=== PATIENT | female | born 1970 | race Caucasian/White ===

== ENCOUNTER 2016-05-06 13:07 | Emergency (ER) | payer MEDICAID, OTHER ==
[~2016-05-06] VITALS: Ht 154.9 cm; Wt 65.0 kg
[2016-05-06 13:18] VITALS: Ht 154.9 cm; Wt 65.0 kg
[2016-05-06 14:47] LABS: POTASSIUM 3.6 mmol/L (3.5-5.1)
[2016-05-06 14:50] LABS: CALCIUM 8.4 mg/dl (8.4-10.2); CREATININE 0.54 mg/dl (0.44-1.00)
[2016-05-06] MEDS ORDERED: IOHEXOL 300MG/ML 150 ML BTL ONE (16:42)
[2016-05-06] MEDS ORDERED: SOD CHLORIDE 0.9% 100 ML ONE (16:42)
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
[2016-05-06] MEDS ORDERED: HYDR-906 PO (17:43)
[2016-05-06] MEDS ORDERED: METH-70 PO (17:43)
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
[2016-05-06 17:59] VITALS: BP 128/62; PULSE 77; RESP 18
== END 2016-05-06 18:00 | disposition home or self-care (01) ==
LOC: E/R 13:07
DX: S39.81XA Other specified injuries of abdomen, initial encounter (principal); N83.202 Unspecified ovarian cyst, left side; V03.10XA Pedestrian on foot injured in collision with car, pick-up truck or van in traffic accident, initial encounter
CPT/HCPCS: 74177; 80048; Q9967; Z7610

== ENCOUNTER 2018-05-18 11:45 | Emergency (ER) | payer MEDICAID ==
[~2018-05-18] VITALS: Ht 160 cm; Wt 80.0 kg
[~2018-05-18 11:45] MED LIST: HYDR-4011 PO; METH750T93 PO
[2018-05-18 11:51] VITALS: Ht 160 cm; Wt 80.0 kg
[2018-05-18] MEDS ORDERED: IBUP-1542 PO (13:24)
--- NOTE | 2018-05-18 13:26 | ERD ---
ER Documentation Chief Complaint Chief Complaint chest pressure with dizziness x 2 days HPI Patient is a 47-year-old female with no medical problems who presents with chest pain. The patient said that she has a chest pressure and nasal congestion. She had dizziness and headache. She had nausea as well as constipation. Her sympt oms started yesterday. They have been constant. She has had no treatment as of yet. Upon review of old medical records this is the patient's fourth visit to the ER since 2012. She does not remember the name of her primary doctor. ROS All systems reviewed and are negative except as per history of present illness. Medications Home Meds Active Scripts Ibuprofen* (Motrin*) 600 Mg Tab, 600 MG PO Q6H PRN for PAIN AND OR ELEVATED TEMP, #30 TAB Prov:DARYL MARTIN MD 05/18/18 Discontinued Scripts Methocarbamol* (Robaxin*) 750 Mg Tablet, 750 MG PO TID, #20 TAB Prov:LEKKOS,APOSTOLOS A. DO 05/06/16 Hydrocodone/Acetaminophen ([place] 5-325 Tablet) 1 Each Tablet, 1 TAB PO Q6H PRN for PAIN, #20 TAB Prov:LEKKOS,APOSTOLOS A. DO 05/06/16 Allergies Allergies: Coded Allergies: No Known Allergy (Unverified , 05/18/18) PMhx/Soc History of Surgery: Yes (CS X 2) Anesthesia Reaction: No Hx Neurological Disorder: No Hx Respiratory Disorders: No Hx Cardiac Disorders: No Hx Psychiatric Problems: No Hx Miscellaneous Medical Probl: No (FIBROIDS) Hx Alcohol Use: No Hx Substance Use: No Hx Tobacco Use: No Smoking Status: Never smoker FmHx Family History: No coronary disease Physical Exam Vitals Vital Signs Date Temp Pulse Resp B/P (MAP) Pulse Ox O2 O2 Flow FiO2 Time Delivery Rate 05/18/18 98.4 95 18 165/77 98 11:51 (106) Physical Exam Const: No acute distress Head: Atraumatic Eyes: Normal Conjunctiva ENT: Normal External Ears, Nose and Mouth. Neck: Full range of motion. No meningismus. Resp: Clear to auscultation bilaterally Cardio: Regular rate and rhythm, no murmurs Abd: Soft, non tender, non distended. Normal bowel sounds Skin: No petechiae or rashes Back: No midline or flank tenderness Ext: No cyanosis, or edema Neur: Awake and alert Psych: Normal Mood and Affect Result Diagram: 05/18/18 1233 05/18/18 1233 Results 24 hrs Laboratory Tests Test 05/18/18 12:33 05/18/18 12:35 White Blood Count 8.1 10^3/ul Red Blood Count 5.50 10^6/ul Hemoglobin 15.1 g/dl Hematocrit 45.5 % Mean Corpuscular Volume 82.7 fl Mean Corpuscular Hemoglobin 27.5 pg Mean Corpuscular Hemoglobin Concent 33.2 g/dl Red Cell Distribution Width 12.9 % Platelet Count 193 10^3/UL Mean Platelet Volume 10.0 fl Immature Granulocytes % 0.700 % Neutrophils % 75.8 % Lymphocytes % 17.6 % Monocytes % 4.8 % Eosinophils % 0.7 % Basophils % 0.4 % Nucleated Red Blood Cells % 0.0 /100WBC Immature Granulocytes # 0.060 10^3/ul Neutrophils # 6.1 10^3/ul Lymphocytes # 1.4 10^3/ul Monocytes # 0.4 10^3/ul Eosinophils # 0.1 10^3/ul Basophils # 0.0 10^3/ul Nucleated Red Blood Cells # 0.0 10^3/ul Sodium Level 143 mmol/L Potassium Level 3.8 mmol/L Chloride Level 106 mmol/L Carbon Dioxide Level 28 mmol/L Anion Gap 9 Blood Urea Nitrogen 10 mg/dl Creatinine 0.48 mg/dl Est Glomerular Filtrat Rate mL/min > 60 mL/min Glucose Level 94 mg/dl Calcium Level 9.2 mg/dl Troponin I < 0.012 ng/ml POC Beta HCG, Qualitative NEGATIVE Procedures/MDM EKG read by me: Rate/Rhythm: Tachycardia rate of 102 Intervals: Normal Impression: Sinus tachycardia without ischemia Chest x-ray negative per radiology. Patient is a 47-year-old female who presents with multiple complaints. She was complaining of chest pressure. Troponin is negative. EKG and chest x-ray are negative. At this point I doubt acute coronary syndrome, pneumonia, pneumothorax, pulmonary embolism, or aortic dissection. I believe outpatient ma nagkatie is appropriate but the patient will need close follow-up with her primary doctor within 24-48 hours. She can return sooner for any worsening symptoms. Departure Diagnosis: Primary Impression: Chest pain Chest pain type: unspecified Qualified Codes: R07.9 - Chest pain, unspecified Condition: Fair Patient Instructions: Chest Pain, Uncertain Cause Referrals: Your doctor Additional Instructions: Llame al doctor MAANA y sandra justen KAREN PARA DENTRO DE 1-2 KEANE.Dgale a la secretaria que nosotros le instruimos hacer esta karen.Avise o llame si goldberg condicin se empeora antes de la karen. Regresa aqui si peor o no mejor. DARYL MARTIN MD May 18, 2018 13:26
[2018-05-18 13:45] VITALS: BP 148/72; PULSE 77; RESP 18
== END 2018-05-18 13:50 | disposition home or self-care (01) ==
LOC: E/R 11:45
DX: R07.89 Other chest pain (principal)
CPT/HCPCS: 71045; 80048; 81025; 84484; 85025; 93005; Z7502